=== PATIENT | male | born 1960 | race Caucasian/White ===

== ENCOUNTER → 2019-10-07 | Outpatient (CLI) | payer MEDICARE, OTHER ==
[2019-10-07 09:01] LABS: Basophils # (auto) 0.1 10 ^3/uL (0-0.2); Basophils % (auto) 0.8 % (0.0-2.0); Eosinophils # (auto) 0.3 10 ^3/uL (0-0.8); Eosinophils % (auto) 5.4 % (0.0-7.0); Hematocrit 50.8 % (41.0-53.0); Hemoglobin 16.7 g/dL (13.5-17.5); Lymphocytes # (auto) 1.1 10 ^3/uL (0.4-5.4); Lymphocytes % (auto) 16.8 % (10.0-50.0); Mean Corpuscular Hemoglobin 30.7 pg (28.0-32.0); Mean Corpuscular Hgb Conc. 32.9 g/dL (32.0-36.0); Mean Corpuscular Volume 93.4 fL (80.0-100.0); Monocytes # (auto) 0.4 10 ^3/uL (0-1.3); Neutrophils # (auto) 4.5 10 ^3/uL (1.6-8.6); Nucleated Red Blood Cells % 0.2 %; Platelet Count (auto) 223 10^3/uL (140-450); Red Blood Cells 5.44 10^6/uL (4.5-5.90); White Blood Cell 6.4 10^3/uL (4.4-10.8)
[2019-10-07 09:19] LABS: Urine Amorphous Crystal FEW /hpf (None Seen); Urine Bacteria NONE SEEN /hpf (None Seen); Urine Blood Negative /uL (Negative); Urine Specific Gravity 1.011 (1.001-1.035); Urine WBC 1 /hpf (0 - 3)
[2019-10-07 09:21] LABS: Potassium 4.2 mmol/L (3.5-5.1)
[2019-10-07 09:31] LABS: BUN/Creatinine Ratio 14.5; Bilirubin, Total 1.6 mg/dL (0.2-1.0); Total Protein 7.6 g/dL (6.4-8.2)
[2019-10-07 09:37] LABS: Free T4 (Free Thyroxine) 0.9 ng/dL (0.89-1.76); Prostate Specific Antigen 5.89 ng/mL (0.0-4.0)
[2019-10-08 08:06] LABS: Lithium (Eskalith) 0.4 mmol/L (0.6-1.2)
== END | disposition home or self-care (01) ==
LOC: LAB 08:32
PROVIDERS: ATTEND Internal Medicine
DX: G20 Parkinson's disease (principal); R35.1 Nocturia; I10 Essential (primary) hypertension; E78.5 Hyperlipidemia, unspecified; D64.9 Anemia, unspecified; R73.01 Impaired fasting glucose
CPT/HCPCS: 36415; 80053; 80061; 80178; 81001; 83036; 84153; 84154; 84439; 84443; 85025; 85652

== ENCOUNTER → 2020-04-13 | Outpatient (CLI) | payer MEDICARE, OTHER ==
[2020-04-13 12:19] LABS: Basophils # (auto) 0.1 10 ^3/uL (0-0.2); Basophils % (auto) 0.7 % (0.0-2.0); Eosinophils # (auto) 0.2 10 ^3/uL (0-0.8); Eosinophils % (auto) 2.3 % (0.0-7.0); Hematocrit 45.6 % (41.0-53.0); Hemoglobin 15.5 g/dL (13.5-17.5); Lymphocytes # (auto) 0.9 10 ^3/uL (0.4-5.4); Lymphocytes % (auto) 12.4 % (10.0-50.0); Mean Corpuscular Hemoglobin 31.3 pg (28.0-32.0); Mean Corpuscular Volume 92.1 fL (80.0-100.0); Monocytes # (auto) 0.6 10 ^3/uL (0-1.3); Monocytes % (auto) 7.5 % (0.0-12.0); Neutrophils # (auto) 5.7 10 ^3/uL (1.6-8.6); Neutrophils % (auto) 77.1 % (37.0-80.0); Platelet Count (auto) 240 10^3/uL (140-450); Red Blood Cells 4.95 10^6/uL (4.5-5.90); Red Cell Distribution Width 13.6 % (11.8-14.3); White Blood Cell 7.4 10^3/uL (4.4-10.8)
[2020-04-13 12:42] LABS: Albumin 3.9 g/dL (3.4-5.0); Calcium 8.9 mg/dL (8.5-10.1); Potassium 3.9 mmol/L (3.5-5.1)
[2020-04-13 12:46] LABS: Bilirubin, Total 1.4 mg/dL (0.2-1.0); Total Protein 7.4 g/dL (6.4-8.2)
== END | disposition home or self-care (01) ==
LOC: LAB 12:07
PROVIDERS: ATTEND Internal Medicine
DX: M79.10 Myalgia, unspecified site (principal); E78.5 Hyperlipidemia, unspecified
CPT/HCPCS: 36415; 80053; 82550; 84443; 85025

== ENCOUNTER 2021-12-15 18:19 | Inpatient (IN) | payer MEDICARE, OTHER ==
[~2021-12-15] VITALS: Ht 177.8 cm; Wt 88.5 kg
[2021-12-15 20:13] LABS: Basophils # (auto) 0 10 ^3/uL (0-0.2); Basophils % (auto) 0.2 % (0.0-2.0); Eosinophils # (auto) 0 10 ^3/uL (0-0.8); Eosinophils % (auto) 0.1 % (0.0-7.0); Hematocrit 45.2 % (41.0-53.0); Hemoglobin 15.4 g/dL (13.5-17.5); Lymphocytes # (auto) 0.3 10 ^3/uL (0.4-5.4); Lymphocytes % (auto) 3.1 % (10.0-50.0); Mean Corpuscular Hgb Conc. 34.1 g/dL (32.0-36.0); Mean Corpuscular Volume 91.2 fL (80.0-100.0); Monocytes # (auto) 0.5 10 ^3/uL (0-1.3); Monocytes % (auto) 4.2 % (0.0-12.0); Neutrophils % (auto) 92.4 % (37.0-80.0); Red Blood Cells 4.96 10^6/uL (4.5-5.90); Red Cell Distribution Width 13.1 % (11.8-14.3); White Blood Cell 10.9 10^3/uL (4.4-10.8)
[2021-12-15 20:28] LABS: Calcium 9.1 mg/dL (8.5-10.1); Magnesium 1.9 mg/dL (1.6-2.6); Potassium 3.5 mmol/L (3.5-5.1)
[2021-12-15 20:30] LABS: BUN/Creatinine Ratio 11.2; Bilirubin, Total 1.6 mg/dL (0.2-1.0); Total Protein 6.7 g/dL (6.4-8.2)
[2021-12-15 20:33] LABS: Magnesium 1.8 mg/dL (1.6-2.6)
[2021-12-15 20:42] LABS: Salicylate 4.2 mg/dL (2.8-20.0)
[2021-12-15 20:45] LABS: Acetaminophen < 2.0 ug/mL (10-30)
[2021-12-15] MEDS ORDERED: ONDANSETRON HCL 4 MG/2 ML VIAL IV PRN (22:15)
[2021-12-15] MEDS ORDERED: HYDROcodone-ACET 5/325MG TAB PO PRN (22:15)
[2021-12-15] MEDS ORDERED: ACETAMINOPHEN 325 MG TAB PO PRN (22:15)
[2021-12-15] MEDS ORDERED: hydrALAZINE HCL 20 MG/ML VL IV PRN (22:15)
[2021-12-15] MEDS ORDERED: DOCUSATE SOD 100 MG CAP PO PRN (22:15)
[2021-12-15] MEDS ORDERED: NITROGLYCERIN 0.4 MG SL TAB SL PRN (22:45)
[2021-12-15] MEDS ORDERED: MORPHINE SULFATE INJ 2 MG/ml SYRG IV PRN (22:45)
[2021-12-16] MEDS: SODIUM CHLOR 0.9% PF (SALINE LOCK) 10ML VIAL/SYR IV SCH ×3 (06:28→22:35)
[2021-12-16 07:14] LABS: Basophils # (auto) 0 10 ^3/uL (0-0.2); Basophils % (auto) 0.3 % (0.0-2.0); Eosinophils # (auto) 0 10 ^3/uL (0-0.8); Eosinophils % (auto) 0.2 % (0.0-7.0); Hematocrit 45.6 % (41.0-53.0); Hemoglobin 15.6 g/dL (13.5-17.5); Lymphocytes # (auto) 0.6 10 ^3/uL (0.4-5.4); Lymphocytes % (auto) 6.1 % (10.0-50.0); Mean Corpuscular Hemoglobin 30.9 pg (28.0-32.0); Mean Corpuscular Hgb Conc. 34.3 g/dL (32.0-36.0); Mean Corpuscular Volume 90.2 fL (80.0-100.0); Monocytes # (auto) 0.7 10 ^3/uL (0-1.3); Monocytes % (auto) 7.6 % (0.0-12.0); Neutrophils # (auto) 8.1 10 ^3/uL (1.6-8.6); Neutrophils % (auto) 85.8 % (37.0-80.0); Red Blood Cells 5.05 10^6/uL (4.5-5.90); Red Cell Distribution Width 13.2 % (11.8-14.3); White Blood Cell 9.4 10^3/uL (4.4-10.8)
[2021-12-16 07:33] LABS: Calcium 8.5 mg/dL (8.5-10.1); Potassium 3.7 mmol/L (3.5-5.1)
[2021-12-16 07:38] LABS: Albumin 3.7 g/dL (3.4-5.0); BUN/Creatinine Ratio 10.8; Bilirubin, Total 1.4 mg/dL (0.2-1.0); Total Protein 6.3 g/dL (6.4-8.2)
[2021-12-16] MEDS: METOPROLOL TARTRATE 25 MG TAB PO SCH ×2 (10:00→22:34)
[2021-12-16] MEDS: amLODIPine BESYLATE 5 MG TAB PO SCH (12:06)
[2021-12-16] MEDS: PANTOPRAZOLE 40 MG/10 ML VIAL INJ IV SCH (12:07)
[2021-12-16] MEDS: SODIUM CHLORIDE 0.9% 1,000 ML IV SCH ×2 (14:03→20:58)
[2021-12-16] MEDS ORDERED: DONE1TAB88 PO (14:45)
[2021-12-16] MEDS ORDERED: DICL1GEL50 TOP (14:45)
[2021-12-16] MEDS ORDERED: LITH300C3 PO (14:45)
[2021-12-16] MEDS ORDERED: CARB25TA77 (14:45)
[2021-12-16] MEDS ORDERED: QUET150T16 PO (14:45)
[2021-12-16] MEDS ORDERED: MONT-8 PO (14:45)
[2021-12-16] MEDS ORDERED: AMLO-489 PO (14:45)
[2021-12-16 15:33] VITALS: BP 130/86
[2021-12-16 17:00] VITALS: BP 139/79
[2021-12-16] MEDS: TAMSULOSIN HYDROCHLORIDE 0.4 MG CAP PO SCH (18:00)
[2021-12-16 22:15] VITALS: BP 158/85
[2021-12-16] MEDS: DONEPEZIL HYDROCHLORIDE 5 MG TAB PO SCH (22:34)
[2021-12-17 04:56] VITALS: BP 131/83
[2021-12-17] MEDS: CARBIDOPA W LEVODOPA 25/100mg TABLET PO SCH ×3 (07:05→22:21)
[2021-12-17] MEDS: SODIUM CHLOR 0.9% PF (SALINE LOCK) 10ML VIAL/SYR IV SCH ×3 (07:05→22:20)
[2021-12-17] MEDS: SODIUM CHLORIDE 0.9% 1,000 ML IV SCH ×4 (07:05→22:35)
[2021-12-17] MEDS: METOPROLOL TARTRATE 25 MG TAB PO SCH ×2 (10:00→22:00)
[2021-12-17] MEDS: QUEtiapine FUMARATE 25 MG TAB PO SCH ×2 (10:00→22:24)
[2021-12-17] MEDS ORDERED: QUEtiapine FUMARATE 25 MG TAB PO SCH (10:00)
[2021-12-17] MEDS: amLODIPine BESYLATE 5 MG TAB PO SCH (10:00)
[2021-12-17] MEDS: PANTOPRAZOLE 40 MG/10 ML VIAL INJ IV SCH (10:00)
[2021-12-17] MEDS: LITHIUM CARBONATE 300 MG TAB PO SCH ×2 (10:00→22:21)
[2021-12-17 10:06] VITALS: BP 140/87
[2021-12-17 13:10] VITALS: BP 130/83
[2021-12-17 17:00] VITALS: BP 140/90
[2021-12-17] MEDS: TAMSULOSIN HYDROCHLORIDE 0.4 MG CAP PO SCH (19:31)
[2021-12-17 21:46] VITALS: BP 97/55
[2021-12-17] MEDS: DONEPEZIL HYDROCHLORIDE 5 MG TAB PO SCH (22:20)
[2021-12-17] MEDS: MIRTAZAPINE 30 MG TAB PO SCH (22:24)
[2021-12-18 05:00] VITALS: BP 136/78
[2021-12-18] MEDS: CARBIDOPA W LEVODOPA 25/100mg TABLET PO SCH ×3 (07:04→22:10)
[2021-12-18] MEDS: SODIUM CHLOR 0.9% PF (SALINE LOCK) 10ML VIAL/SYR IV SCH ×3 (07:05→22:22)
[2021-12-18] MEDS: SODIUM CHLORIDE 0.9% 1,000 ML IV SCH ×3 (07:06→18:56)
[2021-12-18 08:54] VITALS: BP_SYST 122; BP_SYST 148; BP_DIAS 63; BP_DIAS 81
[2021-12-18] MEDS: METOPROLOL TARTRATE 25 MG TAB PO SCH ×2 (08:57→22:12)
[2021-12-18] MEDS: amLODIPine BESYLATE 5 MG TAB PO SCH (09:01)
[2021-12-18] MEDS: QUEtiapine FUMARATE 25 MG TAB PO SCH ×2 (09:02→22:11)
[2021-12-18] MEDS: PANTOPRAZOLE 40 MG/10 ML VIAL INJ IV SCH (09:07)
[2021-12-18] MEDS: LITHIUM CARBONATE 300 MG TAB PO SCH ×2 (10:00→22:10)
[2021-12-18 13:00] VITALS: BP 128/80
[2021-12-18 17:00] VITALS: BP 154/79
[2021-12-18] MEDS: TAMSULOSIN HYDROCHLORIDE 0.4 MG CAP PO SCH (18:56)
[2021-12-18] MEDS: RASAGILINE 1 MG PO SCH (18:59)
[2021-12-18 22:00] VITALS: BP 151/87
[2021-12-18] MEDS: DONEPEZIL HYDROCHLORIDE 5 MG TAB PO SCH (22:10)
[2021-12-18] MEDS: MIRTAZAPINE 30 MG TAB PO SCH (22:11)
[2021-12-19] MEDS: SODIUM CHLORIDE 0.9% 1,000 ML IV SCH ×2 (01:15→11:12)
[2021-12-19 05:00] VITALS: BP 119/72
[2021-12-19 06:06] LABS: Albumin 3.4 g/dL (3.4-5.0); Calcium 8.6 mg/dL (8.5-10.1); Potassium 3.7 mmol/L (3.5-5.1)
[2021-12-19 06:09] LABS: Bilirubin, Total 1.2 mg/dL (0.2-1.0); Total Protein 5.9 g/dL (6.4-8.2)
[2021-12-19 06:10] LABS: Basophils # (auto) 0 10 ^3/uL (0-0.2); Basophils % (auto) 0.5 % (0.0-2.0); Eosinophils # (auto) 0.3 10 ^3/uL (0-0.8); Eosinophils % (auto) 3.9 % (0.0-7.0); Hematocrit 44.6 % (41.0-53.0); Lymphocytes # (auto) 1.1 10 ^3/uL (0.4-5.4); Lymphocytes % (auto) 14.5 % (10.0-50.0); Mean Corpuscular Hemoglobin 30.8 pg (28.0-32.0); Mean Corpuscular Hgb Conc. 33.7 g/dL (32.0-36.0); Mean Corpuscular Volume 91.4 fL (80.0-100.0); Monocytes # (auto) 0.8 10 ^3/uL (0-1.3); Neutrophils # (auto) 5.6 10 ^3/uL (1.6-8.6); Neutrophils % (auto) 71.1 % (37.0-80.0); Nucleated Red Blood Cells % 0.1 %; Red Blood Cells 4.88 10^6/uL (4.5-5.90); Red Cell Distribution Width 13.1 % (11.8-14.3); White Blood Cell 7.9 10^3/uL (4.4-10.8)
[2021-12-19] MEDS: CARBIDOPA W LEVODOPA 25/100mg TABLET PO SCH (06:22)
[2021-12-19] MEDS: SODIUM CHLOR 0.9% PF (SALINE LOCK) 10ML VIAL/SYR IV SCH (06:22)
[2021-12-19 08:00] VITALS: BP 146/83
[2021-12-19 09:00] VITALS: BP 146/83
[2021-12-19] MEDS: RASAGILINE 1 MG PO SCH (10:00)
[2021-12-19] MEDS: QUEtiapine FUMARATE 25 MG TAB PO SCH (10:20)
[2021-12-19] MEDS: amLODIPine BESYLATE 5 MG TAB PO SCH (10:20)
[2021-12-19] MEDS: METOPROLOL TARTRATE 25 MG TAB PO SCH (10:21)
[2021-12-19] MEDS: PANTOPRAZOLE 40 MG/10 ML VIAL INJ IV SCH (10:22)
[2021-12-19] MEDS: LITHIUM CARBONATE 300 MG TAB PO SCH (10:22)
[2021-12-19 12:15] VITALS: BP 146/83
== END 2021-12-19 12:45 | disposition home or self-care (01) | DRG 917 ==
LOC: EDBD 18:19 → ER 18:25 → TELE 22:46 → TELE-EAST 12-16 15:40
PROVIDERS: ADMIT Nurse Practitioner Family; ATTEND Family Medicine
DX: T42.8X1A Poisoning by antiparkinsonism drugs and other central muscle-tone depressants, accidental (unintentional), initial encounter (principal); G92.9 Unspecified toxic encephalopathy; F31.5 Bipolar disorder, current episode depressed, severe, with psychotic features; I10 Essential (primary) hypertension; G20 Parkinson's disease; Z20.822 Contact with and (suspected) exposure to COVID-19; F02.80 Dementia in other diseases classified elsewhere, unspecified severity, without behavioral disturbance, psychotic disturbance, mood disturbance, and anxiety; N40.0 Benign prostatic hyperplasia without lower urinary tract symptoms; Z79.899 Other long term (current) drug therapy; Z82.0 Family history of epilepsy and other diseases of the nervous system; Z82.49 Family history of ischemic heart disease and other diseases of the circulatory system; Z83.3 Family history of diabetes mellitus; Y92.89 Other specified places as the place of occurrence of the external cause
CPT/HCPCS: 36415; 80053; 80178; 80320; 80329; 82550; 83605; 83735; 84484; 85025; C9113; G0378